=== PATIENT | male | born 1980 | race African-American/Black ===

== ENCOUNTER 2023-10-24 16:12 | Emergency (ER) | payer BC ==
[~2023-10-24] VITALS: Ht 160 cm; Wt 73.9 kg
[2023-10-24] VITALS (16 sets, daily range): BP systolic 104–132; BP diastolic 69–90
[2023-10-24 17:08] LABS: BASO% 0.4 % (0-3); EOS% 1.4 % (0-8); HEMATOCRIT 37.3 % (39.0-50.0); HEMOGLOBIN 12.5 g/dl (14.0-18.0); IMMATURE GRANULOCYTES 0.4 % (0.0-5.0); MEAN CELL VOLUME 94.2 fL CALC (80.0-100.0); MEAN CORPUSCULAR HGB 31.6 pG CALC (26.0-32.0); MEAN CORPUSCULAR HGB CONC 33.5 g/dL CAL (32.0-36.0); MONO% 5.2 % (2-13); NEUT# 5.19 thou/uL (1.82-7.42); NEUT% 73.6 % (42-76); RED BLOOD COUNT 3.96 mill/uL (4.70-6.10); RED CELL DISTRI WIDTH 13.4 % (11.5-15.5)
[2023-10-24 17:16] LABS: ALBUMIN 4.2 g/dL (3.2-5.0); BILIRUBIN, TOTAL 0.6 mg/dL (0.2-1.3); CREATININE 3.9 mg/dL (0.7-1.3); MAGNESIUM 1.7 mg/dL (1.6-2.3); POTASSIUM 2.8 mmol/l (3.5-5.1); TOTAL PROTEIN 7.8 g/dL (6.3-8.2)
[2023-10-24] MEDS ORDERED: SODIUM CHLORIDE 0.9% 500 ML IV ONE (17:25)
[2023-10-24] MEDS ORDERED: POTASSIUM CHLORIDE 20 MEQ/TAB PO ONE (17:50)
== END 2023-10-24 19:32 | disposition left against medical advice (07) | DRG 312 ==
LOC: ED 16:12
PROVIDERS: Nurse Practitioner
DX: R55 Syncope and collapse (principal); N18.6 End stage renal disease; I12.0 Hypertensive chronic kidney disease with stage 5 chronic kidney disease or end stage renal disease; E86.0 Dehydration; E11.22 Type 2 diabetes mellitus with diabetic chronic kidney disease; Z99.2 Dependence on renal dialysis; Z86.73 Personal history of transient ischemic attack (TIA), and cerebral infarction without residual deficits; Z53.29 Procedure and treatment not carried out because of patient's decision for other reasons